=== PATIENT | female | born 1975 | race Caucasian/White ===

== ENCOUNTER 2017-12-12 07:22 | Inpatient (IN) | payer OTHER ==
[~2017-12-12] VITALS: Ht 167.6 cm; Wt 135.5 kg
[2017-12-12] MEDS ORDERED: OXYTOCIN 30U/ 0.9% NaCL 500ML 500 ML IV PRN (07:27)
[2017-12-12] MEDS ORDERED: OXYTOCIN 30U/ 0.9% NaCL 500ML 500 ML IV ONE (07:27)
[2017-12-12] MEDS ORDERED: PENICILLIN GK 5,000,000 UNITS in DEXTROSE 5% 100 ML IVPB ONE (07:30)
[2017-12-12] MEDS ORDERED: FENTANYL PF 100 MCG/2ML IVPush PRN (07:30)
[2017-12-12] MEDS ORDERED: FENTANYL PF 100 MCG/2ML IV PRN (07:30)
[2017-12-12] MEDS ORDERED: ONDANSETRON 2MG/ML, 2ML IVPush PRN (07:30)
[2017-12-12] MEDS ORDERED: PREN1TAB60 PO (07:41)
[2017-12-12] MEDS ORDERED: METH250T PO (07:42)
[2017-12-12] MEDS ORDERED: LEVO75TA5 PO (07:43)
[2017-12-12] MEDS ORDERED: METF-649 PO (07:45)
[2017-12-12] MEDS ORDERED: BECL8.7A7 INH (07:46)
[2017-12-12] MEDS ORDERED: MONT10TA6 PO (07:47)
[2017-12-12] MEDS ORDERED: ASPI-496 PO (07:48)
[2017-12-12] MEDS ORDERED: LEVO5TAB29 PO (07:52)
[2017-12-12 07:55] VITALS: BP 137/89
[2017-12-12] MEDS: PENICILLIN GK 2,500,000 UNITS in DEXTROSE 5% 100 ML IVPB SCH ×4 (08:00→20:03)
[2017-12-12 08:01] LABS: BASOPHILS # (AUTO) 0.19 x10^3/uL (0-0.1); BASOPHILS % (AUTO) 2 % (0-1); EOSINOPHILS # (AUTO) 0.07 x10^3/uL (0-0.4); EOSINOPHILS % (AUTO) 1 % (1-7); LYMPHOCYTES # (AUTO) 2.47 x10^3/uL (1-3.4); LYMPHOCYTES % (AUTO) 23 % (22-44); MD NO; MEAN CORPUSCULAR HEMOGLOBIN 26.4 pg (27.0-34.8); MEAN PLATELET VOLUME 8.1 fL (7.4-10.4); MONOCYTES # (AUTO) 0.55 x10^3/uL (0.2-0.8); MONOCYTES % (AUTO) 5 % (2-9); NEUTROPHILS # (AUTO) 7.25 x10^3/uL (1.8-6.8); NEUTROPHILS % (AUTO) 69 % (42-75); PLATELET COUNT 338 x10^3/uL (130-400); RED BLOOD COUNT 4.47 x10^6/uL (3.82-5.3); RED CELL DISTRIBUTION WIDTH 16.3 % (9.6-15.2)
[2017-12-12 08:11] LABS: ALANINE AMINOTRANSFERASE 13 U/L (12-78); ALBUMIN 2.2 g/dL (3.4-5.0); ANION GAP 13 mmol/L (5-15); CALCIUM 8.7 mg/dL (8.5-10.1); CHLORIDE 110 mmol/L (98-107)
[2017-12-12 08:13] LABS: ALKALINE PHOSPHATASE 125 U/L (45-117); BILIRUBIN,TOTAL 0.2 mg/dL (0.2-1.0); TOTAL PROTEIN 6.6 g/dL (6.4-8.2)
[2017-12-12] MEDS ORDERED: OXYTOCIN 30U/ 0.9% NaCL 500ML 500 ML ONE (08:22)
[2017-12-12] MEDS: LACTATED RINGERS 1,000 ML IV SCH ×5 (08:30→22:19)
[2017-12-12] MEDS ORDERED: NEWBORN KIT ONE (10:45)
[2017-12-12] MEDS ORDERED: LIDOCAINE-MPF 2% ,5ML ONE ×3 (13:42→21:52)
[2017-12-12] MEDS ORDERED: FENTANYL/BUPIV./NS/PF 250 ML EPIDCONT ONE (13:43)
[2017-12-12] MEDS ORDERED: FENTANYL/BUPIV./NS/PF 250 ML EPIDCONT SCH (14:19)
[2017-12-12] MEDS ORDERED: EPHEDRINE 50 MG/ML, 1ML IVPush PRN (14:30)
[2017-12-12] MEDS ORDERED: LACTATED RINGERS 1,000 ML IVBOLUS PRN (14:30)
[2017-12-12] MEDS ORDERED: NALOXONE 0.4 MG/ML, 1ML IVPush PRN (14:30)
[2017-12-12] MEDS: D5%-LACTATED RINGERS 1,000 ML IV SCH ×3 (15:27→23:27)
[2017-12-12 19:28] VITALS: BP 140/84
[2017-12-12] MEDS ORDERED: SODIUM CITRATE/CITRIC ACID 30 ML UDC ONE (19:35)
[2017-12-12] MEDS ORDERED: LIDOCAINE 1%, 10ML ONE (19:35)
[2017-12-12] MEDS ORDERED: MISOPROSTOL 200 MCG TABLET ONE (19:36)
[2017-12-12] MEDS ORDERED: METOCLOPRAMIDE 5 MG/ML, 2ML ONE (19:36)
[2017-12-12] MEDS ORDERED: CEFAZOLIN PMX 2GM/50ML 50 ML IV ONE (22:00)
[2017-12-12] MEDS ORDERED: AZITHROMYCIN 500 MG in SODIUM CHLORIDE 0.9% 250 ML IV ONE (22:00)
[2017-12-12] MEDS ORDERED: CEFAZOLIN 1,000 MG ONE (22:08)
[2017-12-12] MEDS ORDERED: KETOROLAC 30 MG/1 ML ONE (22:08)
[2017-12-12] MEDS ORDERED: EPHEDRINE 50 MG/ML, 1ML ONE (22:08)
[2017-12-12] MEDS ORDERED: FENTANYL PF 100 MCG/2ML ONE (22:08)
[2017-12-12] MEDS ORDERED: OXYTOCIN 30U/ 0.9% NaCL 500ML 500 ML IV SCH (23:40)
[2017-12-12] MEDS ORDERED: LACTATED RINGERS 1,000 ML IV SCH ×2 (23:40)
[2017-12-13] MEDS ORDERED: MISOPROSTOL 200 MCG TABLET PR PRN
[2017-12-13] MEDS: PENICILLIN GK 2,500,000 UNITS in DEXTROSE 5% 100 ML IVPB SCH
[2017-12-13] MEDS ORDERED: CALCIUM CARBONATE 500 MG TAB.CHEW PO PRN
[2017-12-13] MEDS ORDERED: SIMETHICONE 80 MG CHEW TAB PO PRN
[2017-12-13] MEDS ORDERED: IBUPROFEN 600 MG TABLET PO SCH
[2017-12-13] MEDS ORDERED: BISACODYL 10 MG SUPP PR PRN
[2017-12-13] MEDS ORDERED: CARBOPROST TROMETHAMINE 250 MCG/ML, 1ML IM PRN
[2017-12-13] MEDS ORDERED: morphine SULFATE 10 MG/ML, 1ML IVPush PRN ×2
[2017-12-13] MEDS ORDERED: ONDANSETRON 2MG/ML, 2ML IV PRN
[2017-12-13] MEDS ORDERED: OXYcodone IR 5MG TABLET PO PRN
[2017-12-13] MEDS ORDERED: SODIUM CITRATE/CITRIC ACID 30 ML UDC PO ONE (00:30)
[2017-12-13] MEDS ORDERED: METOCLOPRAMIDE 5 MG/ML, 2ML IVPush ONE (00:30)
[2017-12-13 01:15] VITALS: BP 138/84
[2017-12-13 05:00] VITALS: BP 133/82
[2017-12-13] MEDS: KETOROLAC 30 MG/1 ML IV SCH ×4 (05:18→23:35)
[2017-12-13] MEDS: OXYcodone IR 5MG TABLET PO PRN ×4 (05:19→21:48)
[2017-12-13] MEDS: ACETAMINOPHEN 325 MG TABLET PO SCH ×4 (06:00→21:48)
[2017-12-13 07:14] VITALS: BP 149/94
[2017-12-13 08:43] LABS: BASOPHILS # (AUTO) 0.06 x10^3/uL (0-0.1); BASOPHILS % (AUTO) 1 % (0-1); EOSINOPHILS # (AUTO) 0.01 x10^3/uL (0-0.4); EOSINOPHILS % (AUTO) 0 % (1-7); LYMPHOCYTES % (AUTO) 18 % (22-44); MD NO; MEAN CORPUSCULAR HEMOGLOBIN 26.9 pg (27.0-34.8); MEAN CORPUSCULAR HGB CONC 33.5 g/dL (32.4-35.8); MEAN CORPUSCULAR VOLUME 80.3 fL (80-100); MEAN PLATELET VOLUME 7.6 fL (7.4-10.4); MONOCYTES # (AUTO) 0.59 x10^3/uL (0.2-0.8); MONOCYTES % (AUTO) 5 % (2-9); NEUTROPHILS # (AUTO) 9.18 x10^3/uL (1.8-6.8); NEUTROPHILS % (AUTO) 77 % (42-75); PLATELET COUNT 289 x10^3/uL (130-400); RED BLOOD COUNT 3.55 x10^6/uL (3.82-5.3)
[2017-12-13] MEDS: PRENATAL VIT/IRON/FA 1 EACH TABLET PO SCH (09:59)
[2017-12-13] MEDS: DOCUSATE 100 MG CAPSULE PO PRN ×2 (09:59→21:48)
[2017-12-13 14:00] VITALS: BP 161/96
[2017-12-13 20:00] VITALS: BP 134/85
[2017-12-13] MEDS ORDERED: METHYLDOPA 250 MG TABLET PO SCH (21:00)
[2017-12-13] MEDS ORDERED: MONTELUKAST 10 MG TABLET PO SCH (21:00)
[2017-12-13 23:45] VITALS: BP 140/89
[2017-12-14] MEDS: ACETAMINOPHEN 325 MG TABLET PO SCH ×2 (04:08→11:47)
[2017-12-14] MEDS: OXYcodone IR 5MG TABLET PO PRN ×2 (04:09→08:43)
[2017-12-14 04:15] VITALS: BP 128/81
[2017-12-14] MEDS: KETOROLAC 30 MG/1 ML IV SCH (05:29)
[2017-12-14] MEDS ORDERED: LEVOTHYROXINE 75 MCG TABLET HOMEMEDPO SCH (06:00)
[2017-12-14 07:45] VITALS: BP 124/79
[2017-12-14] MEDS: DOCUSATE 100 MG CAPSULE PO PRN (08:43)
[2017-12-14] MEDS: PRENATAL VIT/IRON/FA 1 EACH TABLET PO SCH (08:43)
[2017-12-14] MEDS ORDERED: METHYLDOPA 250 MG TABLET HOMEMEDPO SCH (09:00)
[2017-12-14] MEDS ORDERED: TEMPLATE NON-FORMULARY MED. (QVAR 80 MCG) INH SCH ×2 (09:00)
[2017-12-14] MEDS ORDERED: IBUPROFEN 600 MG TABLET PO SCH (11:00)
[2017-12-14] MEDS ORDERED: OXYC-302 PO (13:12)
[2017-12-14] MEDS ORDERED: IBUP-1222 PO (13:12)
[2017-12-14] MEDS ORDERED: MONTELUKAST 10 MG TABLET HOMEMEDPO SCH (21:00)
[2017-12-15] MEDS ORDERED: IBUPROFEN 600 MG TABLET PO SCH (05:00)
== END 2017-12-14 13:40 | disposition home or self-care (01) | DRG 765 ==
LOC: LDIP 07:22 → 2NW 12-13 00:59
PROVIDERS: ADMIT Obstetrics & Gynecology Gynecology; ATTEND Obstetrics & Gynecology Gynecology
PROC: 10D00Z1 Extraction of Products of Conception, Low, Open Approach (ICD-10-PCS; principal; 2017-12-12)
PROC: 0UB70ZZ Excision of Bilateral Fallopian Tubes, Open Approach (ICD-10-PCS; 2017-12-12)
DX: O76 Abnormality in fetal heart rate and rhythm complicating labor and delivery (principal); O10.92 Unspecified pre-existing hypertension complicating childbirth; E66.01 Morbid (severe) obesity due to excess calories; O99.354 Diseases of the nervous system complicating childbirth; O99.214 Obesity complicating childbirth; O99.52 Diseases of the respiratory system complicating childbirth; J45.909 Unspecified asthma, uncomplicated; O99.824 Streptococcus B carrier state complicating childbirth; E78.00 Pure hypercholesterolemia, unspecified; O99.284 Endocrine, nutritional and metabolic diseases complicating childbirth; E03.9 Hypothyroidism, unspecified; G43.909 Migraine, unspecified, not intractable, without status migrainosus; Z3A.37 37 weeks gestation of pregnancy; Z82.3 Family history of stroke; Z37.0 Single live birth; Z82.49 Family history of ischemic heart disease and other diseases of the circulatory system; Z83.2 Family history of diseases of the blood and blood-forming organs and certain disorders involving the immune mechanism; Z83.3 Family history of diabetes mellitus; Z30.2 Encounter for sterilization
CPT/HCPCS: 36415; 80053; 82803; 84550; 85025; 86850; 86900; 88302; J0690; J1885; J2540; J3010; J3490; J2590; J2765; J7120; J7121